=== PATIENT | female | born 1990 | race Caucasian/White ===

== ENCOUNTER 2021-08-09 13:26 | Inpatient (IN) ==
[2021-08-09] MEDS ORDERED: OXYTOCIN 30 UNITS/500 ML BAG IV PRN ×2 (13:28→15:02)
[2021-08-09] MEDS ORDERED: LACTATED RINGER'S 1,000 ML IV PRN (13:28)
--- NOTE | 2021-08-09 13:48 | History & Physical Report ---
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 determined this was an acceptable candidate for labor patient wishes to try labor we did discuss the risks including risk of rupture of the uterine scar and dehiscence we discussed that this risk is low but it is elevated in people with a prior section patient does really wish strongly to have a trial of labor and this is reasonable she is 4 cm now 100% effaced +1 and an active labor membranes appear to be ruptured as well she will be admitted to the hospital Admission and Anticipated Discharge Date Admission Date: August 09, 2021 History of Present Illness Primary Care Provider: NO PCP Allergies Allergy/AdvReac Type Severity Reaction Status Date / Time No Known Allergies Allergy Verified 08/05/21 09:59 Home Medications Medication Instructions Recorded Confirmed Type breast pump #1 ea 06/16/21 08/05/21 Rx Patient History Surgical History (Updated 12/18/20 @ 10:04 by Rebecca Fong) Hx of section Family History (Updated 12/18/20 @ 10:01 by Rebecca Fong) Other Hypertension Thyroid condition Social History (Updated 12/18/20 @ 10:02 by Rebecca Fong) Smoking Status: Never smoker marital status: marital status details: alex(34) [phone] Current Living Situation: Spouse Current Living Situation Comment: lives with spouse and son, 1 cat, spouse to change litter. current occupational status: employed current occupation: [employer] Results & Data ([facility]) Vital Signs (Past 12 Hours) Vital Signs Temp 08/09/21 13:27 98.8 F Coding Level of Care Code None Diagnoses Previous delivery affecting , antepartum O34.219
[2021-08-09 14:03] LABS: Hemoglobin 12.7 g/dL (12.0-16.0); Mean Corpuscular Hemoglobin 29.5 pg (25-34); Mean Corpuscular Hgb Conc 33.4 g/dL (32-36); Mean Corpuscular Volume 88.2 fL (80-100); Mean Platelet Volume 9.3 fL (7.4-10.4); Platelet Count 384 K/uL (130-400); RDW Coefficient of Variation 13.4 % (11.5-14.5); RDW Standard Deviation 43.7 fL (36.4-46.3); Red Blood Count 4.31 M/uL (4.2-5.4); White Blood Count 13.12 K/uL (4.8-10.8)
[2021-08-09] MEDS ORDERED: LIDOCAINE 1% LOCAL 20 ML VIAL ONE (14:29)
--- NOTE | 2021-08-09 14:46 | Delivery Summary ---
Vaginal Delivery Summary Date of Service August 09, 2021 Vaginal Delivery Summary Patient arrived in labor and delivery in active labor she initially arrived at 4 cm with rupture membranes she declined epidural she had a prior section which was a transverse incision in [place] she had been deemed a safe candidate to trial labor she rapidly progressed to 9 cm then 10 cm she began involuntary pushing we try to guide her through pushing however it was somewhat difficult d ue to her level of pain she was able to deliver the baby in occiput anterior position. Should be noted there was a double nuchal cord that was easily passed over the baby's head gentle traction baby was born was a male initially the baby was not responsive so the patient had plan to have her umbilical cord unclamped however because of the need for potential resuscitation I performed a clamp of the umbilical cord and this was cut the baby soon then actually became vigorous and we did not need to provide further resuscitative efforts at this stage the placenta was delivered with gentle traction IV Pitocin was started second-degree tear was repaired first by injecting with lidocaine and then closing with 3-0 Vicryl uterine tone was improving sponge and instrument counts were correct estimated level of blood loss 250 mL rectal exam negative for sutures or defects noted again we had wished to be respect the patient's wish of delayed cord clamping but due to the initial thought that we need to resuscitate the baby we did clamped and cut the cord early this was explained to the patient in detail [facility] Vaginal Delivery Charge Delivery Type Details:
[2021-08-09] MEDS ORDERED: DIPHTHERIA/TETANUS/PERTUSSIS 0.5 ML SYR/VIAL IM ONE (15:02)
[2021-08-09] MEDS ORDERED: bisacodyL 10 MG SUPP PR PRN (15:02)
[2021-08-09] MEDS ORDERED: SUPERCREAM 0.870% 15 GM JAR EXT PRN (15:02)
[2021-08-09] MEDS ORDERED: oxyCODONE/ACETAMINOPHEN 5mg/325mg TAB PO PRN (15:02)
[2021-08-09] MEDS ORDERED: ACETAMINOPHEN 325 MG TAB PO PRN (15:02)
[2021-08-09] MEDS ORDERED: HYDROCORTISONE ACETATE 25 MG SUPP PR PRN (15:02)
[2021-08-09] MEDS ORDERED: BENZOCAINE 20% AER SPR 82.5 GM CAN EXT PRN (15:02)
[2021-08-09 15:16] LABS: Base Excess Cord Arterial Bld -2.6 mEq/L (-9-1.8); CO2 Cord Arterial Blood 53 mmHg (39.1-73.5); HCO3 Cord Arterial Blood 25 mmol/L (19.7-28.5); PO2 Cord Arterial Blood 16 mmHg (4.1-31.7); pH Cord Arterial Blood 7.29 (7.1-7.38)
[2021-08-09 15:24] LABS: Oxygen Sat Cord Arterial Blood < 60.0 % (<60)
[2021-08-09 15:29] LABS: Base Excess Cord Venous Blood -0.2 mEq/L (-7.7-1.9); Cord Venous Blood HCO3 23 mmol/L (18.4-26.8); Cord Venous Blood PCO2 33 mmHg (30.4-57.2); Cord Venous Blood PO2 20 mmHg (14.1-43.3); Cord Venous Blood pH 7.46 (7.20-7.44); O2 Saturation Cord Venous Bld < 60.0 % (<68)
[2021-08-09] MEDS: DOCUSATE SODIUM 100 MG CAP PO SCH (20:43)
[2021-08-09] MEDS: IBUPROFEN 600 MG TAB PO PRN (20:43)
[2021-08-10] MEDS ORDERED: PRENATAL VITAMIN 1 TAB PO SCH (08:00)
[2021-08-10] MEDS: DOCUSATE SODIUM 100 MG CAP PO SCH (08:08)
[2021-08-10] MEDS: IBUPROFEN 600 MG TAB PO PRN (08:08)
--- NOTE | 2021-08-10 08:25 | Obstetrical Progress Note ---
Date of Service August 10, 2021 Assessment & Plan (1) Encounter for care and examination after delivery: Plan: 31yo PPD 1 s/p w/ at 40 weeks 2 days -Continue routine care -Vitals reviewed- HDS, afebrile -GBS negative -Encourage ambulation, regular diet -Pain control with ibuprofen, acetaminophen PRN -Encourage -Hgb 12.7 -discharge likely today -F/u in 6 weeks with OB after discharge Admission and Anticipated Discharge Date Admission Date: August 09, 2021 Supervising Physician Co-Signing Physician Notes Resident Physician Supervision Note: I was present with Dr. Chapa during the history and exam. I discussed the case with the resident and agree with the findings and plan as documented in the note. Any exceptions or clarifications are listed here: [None] Documented By: Rossi Hinson MD, FACOG Subjective Ambulation: yes Voiding: yes Passing Gas: not yet BM: not yet Diet Tolerance: regular Lochia: small Feeding Type: Current Pain Level(1-10): 2 Review of Systems Review of Systems: Denies fevers/chills. Denies dyspnea, cough. Denies chest pain. Mild breast pain when feeding Denies dysuria. Mild overnight headache, improving. Denies back pain. Denies nausea, vomiting. Physical Exam Physical Exam: General: Alert, oriented, no acute distress Cardiac: Regular rate and rhythm, normal S1, S2. No murmurs appreciated. Respiratory: Clear to auscultation, symmetric chest rise and fall. No wheezes or crackles. No increased work of breathing or accessory muscle use Abdomen: Soft, nontender, nondistended. Fundus firm and palpable at 1 cm below umbilicus. No guarding or rebound. Extremities: Warm, dry. No lower extremity edema, erythema or swelling. Results & Data ([facility]) Vital Signs (Past 12 Hours) Vital Signs Temp Pulse Resp BP 08/10/21 04:40 36.7 C 99 H 18 115/73 08/09/21 23:35 36.7 C 93 H 18 115/82 08/09/21 20:35 37.0 C 73 18 117/77 Resident Activity Tracking Resident Involvement: Resident Care Provided Care Provided: OB Delivery
[2021-08-10] MEDS ORDERED: bisacodyL 5 MG TABEC PO SCH (20:00)
== END 2021-08-10 17:55 | disposition home or self-care (01) | DRG 807 ==
LOC: 4S1 13:26 → 4S2 18:30 → EDSTATUS 08-12 07:30
DX: Z37.0 Single live birth; Z3A.40 40 weeks gestation of pregnancy; O70.1 Second degree perineal laceration during delivery; O69.81X0 Labor and delivery complicated by cord around neck, without compression, not applicable or unspecified; O34.218 Maternal care for other type scar from previous cesarean delivery

== ENCOUNTER 2024-07-19 16:03 | Inpatient (IN) ==
[2024-07-19] MEDS: OXYTOCIN 10 UNITS/ML VIAL ONE (16:06)
[2024-07-19] MEDS: LIDOCAINE 1% LOCAL 20 ML VIAL ONE (16:10)
[2024-07-19] MEDS: METHYLERGONOVINE MALEATE 0.2 MG/ML AMP IM ONE (16:11)
[2024-07-19] MEDS ORDERED: bisacodyL 10 MG SUPP PR PRN (16:24)
[2024-07-19] MEDS ORDERED: HYDROCORTISONE ACETATE 25 MG SUPP PR PRN (16:24)
[2024-07-19] MEDS ORDERED: oxyCODONE/ACETAMINOPHEN 5mg/325mg TAB PO PRN (16:24)
[2024-07-19] MEDS ORDERED: ACETAMINOPHEN 325 MG TAB PO PRN (16:24)
--- NOTE | 2024-07-19 16:30 | History & Physical Report ---
Date of Service July 19, 2024 Assessment & Plan (1) Hx successful (vaginal after ), currently : Plan Patient presents to labor and delivery in active labor and pushing see delivery note. Admission and Anticipated Discharge Date Admission Date: July 19, 2024 History of Present Illness Chief Complaint: labor Primary Care Provider: NO PCP Patient is a with iup at 40 1/7 who presents to labor and delivery in active labor. Notified by the ED that the patient was delivering in the parking lot. She did make it up to the delivery room. After delivery, they noted that contractions started around 9am. Were very irregular, but then suddenly got very close and urgent. She notes that her water broke less than a mile from the hospital. and Delivery Plans AMA Weekly NST's @ 36 weeks Prior 2016, Prior successful . *given consent *op note from quentin scanned in C/S SCHEDULED FOR 07/29/[address] LEWIS Hep C +ab--> neg RNA quant testing OB Labs: Blood Type O Positive 12/12/23 Antibody Screen NEGATIVE 12/12/23 Hgb 12.2 g/dl (12.0-16.0) 06/27/24 Hct 38.0 % (37.0-47.0) 06/27/24 MCV 90.0 fL (80.0-100.0) 06/27/24 Plt Count 441 K/uL (130-400) H 06/27/24 Rubella IgG Antibody Immune (Immune) 12/12/23 RPR Nonreactive (Nonreactive) 12/12/23 Treponema pallidum Ab Negative (Negative) 04/30/24 Hep Bs Antigen Neg (Neg) 12/28/20 Hep Bs Antigen NON-REACTIVE (NON-REACTIVE) 12/12/23 Hepatitis C Ab (EIA) REACTIVE (NON-REACTIVE) A 12/12/23 HIV 1&2 Ab/P24 Ag 4thGn Neg (Neg) 12/28/20 HIV (1&2) Ag & Ab Conf NON-REACTIVE (NON-REACTIVE) 12/12/23 Glucose 1 Hr 50 gm 116 mg/dl (70-130) 04/30/24 OB Optional Labs: Chlamydia trachomatis RNA Not Detected (NotDetected) 12/12/23 Neisseria gonorrhoeae RNA Not Detected (NotDetected) 12/12/23 Thyroid Stimulating Hormone (TSH) 2.009 uIu/ml (0.300-4.500) 08/01/23 Labs Reviewed: Declines genetics--mln neg Hep C RNA gbs neg--akh Allergies Allergy/AdvReac Type Severity Reaction Status Date / Time No Known Allergies Allergy Verified 07/15/24 09:16 Home Medications Medication Instructions Recorded Confirmed Type 21-iron fu-folic acid PO 12/01/23 07/15/24 History [ Complete] Patient History Medical History History of chicken pox Surgical History Hx of section Family History Grandmother (Paternal) Breast cancer Mother Hypertension Thyroid condition Denies family history of Ovarian cancer Colorectal cancer Social History Smoking Status: Never smoker Do You Dip or Chew Tobacco: No; Hx Alcohol Use: No Hx Substance Use: No Preferred Language: Spanish Communication Ability: Effective Ornament Setter Required: No Beliefs That Will Affect Care: None marital status: marital status details: Addison(37) [phone] Current Living Situation: Spouse and Family Current Living Situation Comment: lives with spouse, 2 children, 1 cat-spouse to change litter. 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 Date GA wks Lbr Lgth wt Sex Type del Anes Place Del Prov ? Comment 06/28/17 39 6lb 6oz M Spinal Other [place] No [place] does not do vaginal . no complications. 08/09/21 40 7 M None [facility] Abbe Haynes [employer] History noncontributory Physical Exam Physical Exam: cx--c/c/+3, pushing involuntarily toco--q2-3 erm--fht present Results & Data Vital Signs (Past 12 Hours) Vital Signs Pulse BP 07/19/24 16:14 94 H 144/84 H Coding Level of Care Code None Diagnoses Hx successful (vaginal after ), currently O34.219
--- NOTE | 2024-07-19 16:39 | Delivery Summary ---
Vaginal Delivery Summary Date of Service July 19, 2024 Vaginal Delivery Summary and 2nd Degree LAC Pre-operative Diagnosis: iup at 40 1/7 active labor Post-operative Diagnosis: same Procedure: second degree laceration and repair QBL: 84cc +105cc Anesthesia: local anesthesia to the perineum Procedure: The patient presents to labor and delivery from the ED, in active labor and involuntarily pushing. We were able to get her upstairs and in the bed in knee chest. The patient refused to turn over into lithotomy. The fetus was at my first exam. She pushed successfully in knee chest. We were able to get some heart tones that sounded in the 100s-110?. The patient pushed to deliver a viable male infant in OA. the shoulders followed rapidly. The nose and mouth were bulb suctioned on the bed and baby stimulated and dried. Cord was clamped and cut immediately. Cord blood and segment obtained. was taken to the warmer for drying and attention as it was not spontaneously breathing. Placenta delivered spontaneous, intact with a three vessel cord. Cervix/sulci/rectum were intact. A second degree perineal laceration was repaired in the normal standard fashion after infiltrating the perineum with lidocaine. Hemostasis obtained with dilute pitocin and fundal massage IM pitocin and IM methergine. Apgars were 7/9. Mother and baby doing well at the end of the delivery. Approximately 20 minutes after the delivery, the patient had a large gush of blood. I examined the damir and removed some clot. IV started and dilute pitocin run. Additional 105cc of blood measured. [facility] Vaginal Delivery Charge Delivery Type Details: and 2nd Degree LAC
[2024-07-19] MEDS: OXYTOCIN 30 UNITS/NSS 30 UNITS/500 ML BAG IV SCH (16:47)
[2024-07-19 16:56] LABS: Hematocrit (blood only) 36.1 % (37.0-47.0); Mean Corpuscular Hgb Conc 33.2 g/dL (32.0-36.0); Mean Corpuscular Volume 87.2 fL (80.0-100.0); Mean Platelet Volume 9.7 fL (9.4-12.4); Platelet Count 282 K/uL (130-400); RDW Coefficient of Variation 13.5 % (11.5-14.5); RDW Standard Deviation 42.5 fL (36.4-46.3); Red Blood Count 4.14 M/uL (4.20-5.40); White Blood Count 10.98 K/ul (4.8-10.8)
[2024-07-19] MEDS: IBUPROFEN 600 MG TAB PO PRN (17:16)
[2024-07-19 17:17] LABS: Base Excess Cord Arterial Bld -3.2 mEq/L (-9-1.8); CO2 Cord Arterial Blood 61 mmHg (39.1-73.5); HCO3 Cord Arterial Blood 26 mmol/L (19.7-28.5); Oxygen Sat Cord Arterial Blood < 60.0 % (<60); PO2 Cord Arterial Blood < 20 mmHg (4.1-31.7); pH Cord Arterial Blood 7.23 (7.1-7.38)
[2024-07-19 17:18] LABS: Base Excess Cord Venous Blood -1.1 mEq/L (-7.7-1.9); Cord Venous Blood HCO3 23 mmol/L (18.4-26.8); Cord Venous Blood PCO2 34 mmHg (30.4-57.2); Cord Venous Blood PO2 26 mmHg (14.1-43.3); Cord Venous Blood pH 7.43 (7.20-7.44); O2 Saturation Cord Venous Bld < 60.0 % (<68)
[2024-07-19] MEDS: OXYTOCIN 10 UNITS/ML 10ML VIAL IM ONE (17:22)
[2024-07-19] MEDS: DIPHTHER/TETAN/PERTUS Vaccine (Tdap, Adol/Adult) 0.5mL IM ONE (17:23)
[2024-07-19] MEDS ORDERED: Nursing to Pharmacy Communication SCH (18:15)
[2024-07-19] MEDS: OXYTOCIN 30 UNITS/500ML NSS IV ONE (18:23)
[2024-07-19] MEDS: DOCUSATE SODIUM 100 MG CAP PO SCH (20:54)
[2024-07-19] MEDS: BENZOCAINE 20% SPRY 85 APPLN/85 GM CAN EXT PRN (20:54)
--- NOTE | 2024-07-20 06:20 | Obstetrical Progress Note ---
Date of Service <Kyaw Robles MD - Last Filed: 07/20/24 07:09> July 20, 2024 Assessment & Plan <Kyaw Robles MD - Last Filed: 07/20/24 07:09> (1) care and examination: Plan PPD#1 s/p term : Stable. Rh+, gbs -, ri, vitals & labs wnl Continue routine care, continue OOB and ambulation, diet as tolerated Plan for DC at 24h <Irene Guzman MD, FACOG - Last Filed: 07/20/24 07:37> (1) care and examination: Subjective <Kyaw Robles MD - Last Filed: 07/20/24 07:09> Ana is a 34 y/o who is PPD#1 following at 40+ weeks. Minimal abd pain/cramping, reports worst when trying to lie on her side. Also exacerbated by coughing Is voiding, eating, and ambulating normally Having appropriate lochia Planning for exclusive . Constitutional: no fever, no chills or no sweats Respiratory: no dyspnea Cardiovascular: no chest pain, no palpitations or no calf pain Breast: no breast pain Gastrointestinal: no nausea or no vomiting Genitourinary (female): no dysuria Neurologic: no headache(s) no changes in vision, no headaches Physical Exam <Kyaw Robles MD - Last Filed: 07/20/24 07:09> General: Alert, oriented. No acute distress. Cardiac: Regular rate and rhythm, no murmurs, rubs, or gallops. Respiratory: Clear to auscultation bilaterally. No increased work of breathing. Symmetrical chest rise. No respiratory distress. Abdomen: Soft, nontender, nondistended. Bowel sounds present. Uterus: Uterine fundus firm, nontender. Lower extremities: No lower extremity edema or swelling. No deep calf pain. Results & Data <Kyaw Robles MD - Last Filed: 07/20/24 07:09> Vital Signs (Past 12 Hours) Vital Signs Temp Pulse Pulse Pulse Resp BP BP 07/20/24 03:05 36.5 C 80 18 117/78 07/19/24 23:03 36.5 C 68 18 127/76 07/19/24 20:40 36.7 C 88 18 122/80 07/19/24 18:30 36.8 C 81 16 125/66 07/19/24 18:30 81 125/66 Pulse Ox O2 Del Method 07/20/24 03:05 97 Room Air 07/19/24 23:03 97 Room Air 07/19/24 20:40 96 Room Air 07/19/24 18:30 07/19/24 18:30 Supervising Physician <Irene Guzman MD, FACOG - Last Filed: 07/20/24 07:37> Co-Signing Physician Notes Resident Physician Supervision Note: I interviewed and examined the patient. Discussed with Dr. Robles and agree with findings and plan as documented in the note. Any exceptions or clarifications are listed here: Doing well. No concerns ppd 1/2. Would like d/c at 24 hours if baby allowed. Instructions reviewed. Documented By: Irene Guzman MD, FACOG Resident Activity Tracking <Kyaw Robles MD - Last Filed: 07/20/24 07:09> Resident Involvement: Resident Care Provided Care Provided: Adult Hospital Medicine and OB Delivery
[2024-07-20] MEDS: PRENATAL VITAMIN 1 TAB PO SCH (08:33)
[2024-07-20 15:22] VITALS: BP 114/74; RESP 16; TEMP 98.2; O2SAT 97
[2024-07-20 16:21] VITALS: PULSE 88
[2024-07-20] MEDS ORDERED: bisacodyL 5 MG TABEC PO SCH (20:00)
== END 2024-07-20 18:05 | disposition home or self-care (01) | DRG 807 ==
LOC: 4S1 16:03 → 4E2 18:50